=== PATIENT | female | born 1940 | race Caucasian/White ===

== ENCOUNTER 2023-12-27 18:27 | Inpatient (IN) | payer MEDICARE, BC ==
[~2023-12-27] VITALS: Ht 160 cm; Wt 63.5 kg
[2023-12-27] MEDS: ALBUTEROL FS 2.5 MG/3 ML VIAL.NEB NEB ONE (19:21)
[2023-12-27] MEDS: IPRATROPIUM NEB FS 0.5 MG/2.5 ML AMPUL.NEB NEB ONE (19:21)
[2023-12-27] MEDS ORDERED: Magnesium 1 GM/2 ML VIAL ONE (19:22)
[2023-12-27] MEDS ORDERED: methylPREDNISolone SOD SUCC 125 MG/2ML VIAL ONE (19:22)
[2023-12-27] MEDS: IV NS 0.9% 1,000 ML BAG IV ONE (19:35)
[2023-12-27 19:37] VITALS: O2SAT 100
[2023-12-27] MEDS: Magnesium 1GM/D5W 100ML PREMIX 200 ML IV ONE (19:40)
[2023-12-27] MEDS: methylPREDNISolone SOD SUCC 125 MG/2ML VIAL IV ONE (19:41)
[2023-12-27] MEDS ORDERED: IPRATROPIUM NEB FS 0.5 MG/2.5 ML AMPUL.NEB ONE (19:46)
[2023-12-27] MEDS ORDERED: ALBUTEROL FS 2.5 MG/3 ML VIAL.NEB ONE (19:46)
[2023-12-27 20:37] VITALS: O2SAT 100
[2023-12-27 21:33] LABS: BASOPHILS % (AUTO) 0.4 % (0.0-2.0); EOSINOPHILS % (AUTO) 0.1 % (0.0-6.0); HEMATOCRIT 39 % (33-45); HEMOGLOBIN 12.9 g/dL (11.5-14.8); LYMPHOCYTES # (AUTO) 2.2 K/uL (0.8-4.8); LYMPHOCYTES % (AUTO) 19.2 % (20.0-44.0); MEAN CORPUSCULAR HEMOGLOBIN 30 PG (26.0-33.0); MEAN CORPUSCULAR HGB CONC 34 g/dl (31.0-36.0); MEAN CORPUSCULAR VOLUME 91 fL (82-100); MONOCYTES # (AUTO) 0.7 K/uL (0.1-1.30); MONOCYTES % (AUTO) 5.9 % (2.0-12.0); NEUTROPHILS # (AUTO) 8.7 K/uL (1.8-8.9); NEUTROPHILS % (AUTO) 74.4 % (43.0-81.0); PLATELET COUNT (AUTO) 224 K/uL (150-450); RED BLOOD CELL COUNT(AUTO) 4.24 MIL/uL (4.0-5.2); RED CELL DISTRIBUTION WIDTH 14.4 % (11.5-15.0); WHITE BLOOD COUNT (AUTO) 11.6 K/uL (4.3-11.0)
[2023-12-27 21:53] LABS: ALANINE AMINOTRANSFERASE 51 U/L (12-78); ALKALINE PHOSPHATASE 95 U/L (46-116); ASPARTATE AMINOTRANSFERASE 27 U/L (15-37); BILIRUBIN,DIRECT 0.1 mg/dL (0.0-0.2); BILIRUBIN,TOTAL 0.4 mg/dL (0.2-1.0); CALCIUM, SERUM 8.5 mg/dL (8.5-10.1); CARBON DIOXIDE 23 mmol/L (21-32); CHLORIDE 106 mmol/L (98-107); GLUCOSE 140 mg/dL (74-106); NT-PRO BNP 1121 pg/mL (0-125); POTASSIUM 3.4 mmol/L (3.5-5.1); SODIUM SERUM 140 mmol/L (136-145); TOTAL PROTEIN, SERUM 6.6 g/dL (6.4-8.2); UREA NITROGEN, BLOOD 25 mg/dL (7-18)
[2023-12-27 21:57] LABS: INR 0.99 (0.91-1.10); PARTIAL THROMBOPLASTIN TIME 24.7 SEC (24.3-34.3); PROTHROMBIN TIME 10.5 SECS (9.2-11.1)
[2023-12-27] MEDS ORDERED: Z GUARD REMEDY 4 OZ OINT TP PRN (23:30)
[2023-12-27] MEDS ORDERED: MAGNESIUM HYDROXIDE 30 ML UDC PO PRN (23:30)
[2023-12-27] MEDS ORDERED: ONDANSETRON HCL/PF 4 MG/2 ML VIAL IVP PRN (23:30)
[2023-12-27] MEDS ORDERED: ACETAMINOPHEN 325 MG TABLET PO PRN (23:30)
[2023-12-27 23:47] VITALS: O2SAT 100
[2023-12-28] VITALS (13 sets, daily range): BP systolic 149–189; BP diastolic 60–75; TEMP 97.6–98.3; O2SAT 95–100
[2023-12-28] MEDS: ENOXAPARIN SODIUM 40 MG/0.4 ML DISP.SYRIN SQ SCH (00:47)
[2023-12-28] MEDS: POTASSIUM CHLORIDE 20 MEQ TAB.PRT.SR PO ONE (00:47)
[2023-12-28] MEDS: TRAMADOL HCL 50 MG TABLET PO PRN (00:49)
[2023-12-28] MEDS: ALBUTEROL HALF STRENGTH 1.25 MG/3 ML VIAL.NEB NEB SCH (01:44)
[2023-12-28] MEDS: IPRATROPIUM NEB FS 0.5 MG/2.5 ML AMPUL.NEB NEB SCH (01:45)
[2023-12-28 06:19] LABS: BASOPHILS % (AUTO) 0.4 % (0.0-2.0); HEMATOCRIT 40 % (33-45); HEMOGLOBIN 13.1 g/dL (11.5-14.8); LYMPHOCYTES % (AUTO) 7.1 % (20.0-44.0); MEAN CORPUSCULAR HEMOGLOBIN 30 PG (26.0-33.0); MEAN CORPUSCULAR HGB CONC 33 g/dl (31.0-36.0); MEAN CORPUSCULAR VOLUME 91 fL (82-100); MONOCYTES % (AUTO) 2.3 % (2.0-12.0); NEUTROPHILS % (AUTO) 90.2 % (43.0-81.0); PLATELET COUNT (AUTO) 226 K/uL (150-450); RED BLOOD CELL COUNT(AUTO) 4.42 MIL/uL (4.0-5.2); RED CELL DISTRIBUTION WIDTH 13.8 % (11.5-15.0); WHITE BLOOD COUNT (AUTO) 11.4 K/uL (4.3-11.0)
[2023-12-28 06:20] LABS: BASOPHILS # (AUTO) 0.1 K/uL (0.0-0.2); CALCIUM, SERUM 8.9 mg/dL (8.5-10.1); CREATININE 1.1 mg/dL (0.6-1.3); LYMPHOCYTES # (AUTO) 0.8 K/uL (0.8-4.8); MAGNESIUM 2.3 mg/dL (1.8-2.4); MONOCYTES # (AUTO) 0.3 K/uL (0.1-1.30); NEUTROPHILS # (AUTO) 10.2 K/uL (1.8-8.9); PHOSPHORUS 3.7 mg/dL (2.5-4.9); POTASSIUM 4.7 mmol/L (3.5-5.1)
[2023-12-28] MEDS: methylPREDNISolone SOD SUCC 40 MG/ML VIAL IV SCH (06:33)
[2023-12-28] MEDS ORDERED: VALS320T2 PO (08:17)
[2023-12-28] MEDS ORDERED: MONT10TA22 PO (08:17)
[2023-12-28] MEDS ORDERED: BUDE10.2 IH (08:17)
[2023-12-28] MEDS ORDERED: FLUT16SP NS (08:17)
[2023-12-28] MEDS ORDERED: TIOT18CA3 IH (08:17)
[2023-12-28] MEDS ORDERED: AMLO10TA4 PO (08:17)
[2023-12-28] MEDS ORDERED: AZIT250T PO (08:17)
[2023-12-28] MEDS ORDERED: FAMO20TA8 PO (08:17)
[2023-12-28] MEDS ORDERED: ALBU8.5H8 IH (08:17)
[2023-12-28] MEDS: AMLODIPINE BESYLATE 10 MG TABLET PO SCH (10:17)
[2023-12-28] MEDS: VALSARTAN 80 MG TABLET PO SCH (10:24)
[2023-12-28] MEDS ORDERED: ALBUTEROL HALF STRENGTH 1.25 MG/3 ML VIAL.NEB NEB PRN (11:30)
[2023-12-28] MEDS ORDERED: IPRATROPIUM NEB FS 0.5 MG/2.5 ML AMPUL.NEB NEB PRN (11:30)
[2023-12-28] MEDS: ALBUTEROL INH PRN (11:58)
[2023-12-28] MEDS ORDERED: IPRATROPIUM NEB FS 0.5 MG/2.5 ML AMPUL.NEB NEB SCH (13:30)
[2023-12-28] MEDS: MONTELUKAST SODIUM (10MG) 10 MG TABLET PO SCH (17:21)
[2023-12-28] MEDS: CLONIDINE HCL 0.1 MG TABLET PO PRN (17:21)
[2023-12-28] MEDS: BUDESONIDE RESPULE INH 0.5 MG/2 ML AMPUL.NEB NEB SCH (19:22)
[2023-12-28] MEDS: FAMOTIDINE (20 MG) 20 MG TABLET PO SCH (21:21)
[2023-12-28] MEDS: MAG HYDROX/AL HYDROX/SIMETH 30 ML UDC PO PRN (21:58)
[2023-12-29] VITALS (10 sets, daily range): BP systolic 130–175; BP diastolic 55–82; TEMP 97.3–99; O2SAT 95–100
[2023-12-29] MEDS: FLUTICASONE PROPIONATE 16 GM BOTTLE NS SCH (11:09)
[2023-12-29] MEDS ORDERED: ALBUTEROL FS 2.5 MG/0.5 ML VIAL.NEB NEB PRN (16:30)
[2023-12-29] MEDS: ZOLPIDEM TARTRATE 5 MG TABLET PO PRN (23:44)
[2023-12-30] VITALS (8 sets, daily range): BP systolic 124–148; BP diastolic 54–57; TEMP 97.7–98; O2SAT 95–100
[2023-12-30] MEDS: CLONIDINE HCL 0.1 MG TABLET PO PRN (05:27)
[2023-12-30 06:42] LABS: BASOPHILS # (AUTO) 0.1 K/uL (0.0-0.2); BASOPHILS % (AUTO) 0.4 % (0.0-2.0); HEMATOCRIT 36 % (33-45); HEMOGLOBIN 11.9 g/dL (11.5-14.8); LYMPHOCYTES # (AUTO) 1.7 K/uL (0.8-4.8); LYMPHOCYTES % (AUTO) 11.1 % (20.0-44.0); MEAN CORPUSCULAR HEMOGLOBIN 30 PG (26.0-33.0); MEAN CORPUSCULAR HGB CONC 33 g/dl (31.0-36.0); MEAN CORPUSCULAR VOLUME 91 fL (82-100); MONOCYTES # (AUTO) 0.7 K/uL (0.1-1.30); MONOCYTES % (AUTO) 4.3 % (2.0-12.0); NEUTROPHILS # (AUTO) 13.2 K/uL (1.8-8.9); NEUTROPHILS % (AUTO) 84.2 % (43.0-81.0); PLATELET COUNT (AUTO) 204 K/uL (150-450); RED CELL DISTRIBUTION WIDTH 14.2 % (11.5-15.0); WHITE BLOOD COUNT (AUTO) 15.7 K/uL (4.3-11.0)
[2023-12-30 07:15] LABS: CALCIUM, SERUM 8.8 mg/dL (8.5-10.1); CREATININE 0.9 mg/dL (0.6-1.3); POTASSIUM 4.3 mmol/L (3.5-5.1)
[2023-12-30] MEDS ORDERED: CLONIDINE HCL 0.1 MG TABLET PO PRN ×2 (08:00)
[2023-12-30] MEDS ORDERED: PRED20TA PO (10:36)
[2023-12-30] MEDS: ALBUTEROL HALF STRENGTH 1.25 MG/3 ML VIAL.NEB NEB PRN (12:16)
== END 2023-12-30 12:45 | disposition home or self-care (01) | DRG 190 ==
LOC: ER 18:32 → TELE1 21:09
PROVIDERS: ADMIT Nurse Practitioner Acute Care; ATTEND Internal Medicine
DX: J44.1 Chronic obstructive pulmonary disease with (acute) exacerbation (principal); J96.01 Acute respiratory failure with hypoxia; E44.1 Mild protein-calorie malnutrition; E88.09 Other disorders of plasma-protein metabolism, not elsewhere classified; E87.6 Hypokalemia; Z88.0 Allergy status to penicillin; G62.9 Polyneuropathy, unspecified; R79.89 Other specified abnormal findings of blood chemistry
CPT/HCPCS: 36415; 71045-TC; 80048-TC; 80061-TC; 80076-TC; 83735-TC; 83880; 84100-TC; 84484-TC; 85025-TC; 85730-TC; 94761-TC; 94799-TC; A4223; G0378; J1650; J2920; J2930; J3475; J7030; J7060